=== PATIENT | male | born 1990 | race Hispanic/Latino ===

== ENCOUNTER 2017-09-15 15:10 | Emergency (ER) | payer OTHER ==
[2017-09-15] MEDS ORDERED: Ibuprofen 800 MG TAB ONE (15:29)
[2017-09-15] MEDS ORDERED: predniSONE 20 MG TAB ONE (15:29)
[2017-09-15] MEDS ORDERED: HYDROcodone/Acetaminophen 10/325 mg Tablet ONE (15:29)
== END 2017-09-15 15:37 | disposition home or self-care (01) ==
LOC: MADERS 15:10
DX: M25.462 Effusion, left knee (principal); F17.210 Nicotine dependence, cigarettes, uncomplicated
CPT/HCPCS: 99283; J7506